=== PATIENT | male | born 1955 | race Caucasian/White ===

== ENCOUNTER 2020-04-10 08:20 | Day surgery (SDC) | payer OTHER ==
[2020-04-07 14:03] VITALS: BMI 25.8
[2020-04-10] MEDS ORDERED: LIDOCAINE HCL/PF 2% SDV 5ML VIAL ONE (08:34)
[2020-04-10] MEDS ORDERED: PROPOFOL 20 ML ONE ×2 (08:34)
[2020-04-10 10:33] VITALS: TEMP 97.8
[2020-04-10 10:34] VITALS: BP 128/65; PULSE 71
== END 2020-04-10 10:44 | disposition home or self-care (01) ==
LOC: FASU-ENDO 08:20
PROVIDERS: ATTEND Internal Medicine Gastroenterology
PROC: 0DB68ZX Excision of Stomach, Via Natural or Artificial Opening Endoscopic, Diagnostic (ICD-10-PCS; 2020-04-10)
PROC: 0DB48ZX Excision of Esophagogastric Junction, Via Natural or Artificial Opening Endoscopic, Diagnostic (ICD-10-PCS; 2020-04-10)
PROC: 0DB98ZX Excision of Duodenum, Via Natural or Artificial Opening Endoscopic, Diagnostic (ICD-10-PCS; principal; 2020-04-10 09:50)
DX: K29.50 Unspecified chronic gastritis without bleeding (principal); K21.00 Gastro-esophageal reflux disease with esophagitis, without bleeding; K31.9 Disease of stomach and duodenum, unspecified; R10.13 Epigastric pain
CPT/HCPCS: 88305-TC; 88342-TC